=== PATIENT | male | born 1945 | race Hispanic/Latino ===

== ENCOUNTER 2018-01-01 08:36 | Inpatient (IN) | payer MEDICARE ==
--- NOTE | 2018-01-01 09:53 | ED PDOC ---
Arrival/HPI - General Historian: Patient - History of Present Illness Time/Duration: > week Symptom Onset: Gradual Symptom Course: Unchanged Activities at Onset: Light Context: Home <Kurt Grewal - Last Filed: 01/01/18 11:59> - General Historian: Patient, Spouse - History of Present Illness Time/Duration: > week Symptom Onset: Gradual Symptom Course: Unchanged Activities at Onset: Light Context: Home <Idania Florentino Skip - Last Filed: 01/02/18 16:43> - General Chief Complaint: Abdominal Pain Time Seen by Provider: 01/01/18 09:10 - History of Present Illness Narrative History of Present Illness (Text): 01/01/18 09:48 Joni Thomas is a 72 year old male, whose past medical history includes COPD, Diabetes Mellitus, and hypertension, who presents to the emergency department complaining of left side pain for a day. Patient has an associated cough for about 2 weeks. He saw his primary medical physician for evaluation. Patient reports pain in intermittent and worsens with inhalation and cough. Patient denies any fever, chills, chest pain, shortness of breath, nausea, vomiting, diarrhea, back pain, neck pain, headache, dizziness, or any other complaints. (Kurt Grewal) Past Medical History - Provider Review Nursing Documentation Reviewed: Yes - Infectious Disease Hx of Infectious Diseases: None - Tetanus Immunization Tetanus Immunization: Unknown - Cardiac Hx Cardiac Disorders: Yes Hx Hypertension: Yes Hx Peripheral Edema: Yes (ble +1) - Pulmonary Hx Respiratory Disorders: Yes (has home nebulizer) Hx Bronchitis: Yes Hx Chronic Obstructive Pulmonary Disease (COPD): Yes Hx Emphysema: Yes - Neurological Hx Paralysis: No - Endocrine/Metabolic Hx Diabetes Mellitus Type 2: Yes - Hematological/Oncological Hx Blood Transfusions: No Hx Blood Transfusion Reaction: No - Integumentary Other/Comment: multiple skin discolorations ble and dry skin - Musculoskeletal/Rheumatological Hx Falls: No - Psychiatric Hx Emotional Abuse: No Hx Physical Abuse: No Hx Substance Use: No Other/Comment: H/O OF SMOKING CIGARETTES QUIT,DRINKS 1/2 GLASS OF WINE DAILY - Surgical History Hx Coronary Stent: Yes (x1 march of 2014) Other/Comment: CARDIAC STENTS, - Anesthesia Hx Anesthesia: Yes Hx Anesthesia Reactions: No Hx Malignant Hyperthermia: No - Suicidal Assessment Feels Threatened In Home Enviroment: No <Kurt Grewal - Last Filed: 01/01/18 11:59> - Provider Review Nursing Documentation Reviewed: Yes - Travel History Have you recently traveled outside [place] w/in the past 3 mons?: No - Infectious Disease Hx of Infectious Diseases: None - Tetanus Immunization Tetanus Immunization: Unknown <Idania Florentino - Last Filed: 01/02/18 16:43> Family/Social History - Physician Review Nursing Documentation Reviewed: Yes Family/Social History: Unknown Family HX Smoking Status: Former Smoker Hx Alcohol Use: Yes (1/2 glass wine a day) Hx Substance Use: No Hx Substance Use Treatment: No <CarminaKurt - Last Filed: 01/01/18 11:59> - Physician Review Nursing Documentation Reviewed: Yes Family/Social History: Unknown Family HX Smoking Status: Former Smoker Hx Alcohol Use: Yes Hx Substance Use: No Hx Substance Use Treatment: No <Idania Florentino - Last Filed: 01/02/18 16:43> Allergies/Home Meds <CarminaKurt - Last Filed: 01/01/18 11:59> <Idania Florentino - Last Filed: 01/02/18 16:43> Allergies/Adverse Reactions: Allergies No Known Allergies Allergy (Verified 11/17/16 06:51) Home Medications: Home Meds Medication Instructions Recorded Confirmed Fluticasone/Salmeterol 250/50 1 puff PO BID 11/08/15 01/01/18 [Advair Diskus 250/50] Aspirin [Ecotrin] 81 mg PO DAILY 11/17/16 01/01/18 Losartan Potassium [Cozaar] 50 mg PO DAILY 11/17/16 01/01/18 MetFORMIN [glucoPHAGE] 1,000 mg PO BID 11/17/16 01/01/18 Pravastatin Sodium 80 mg PO DAILY 11/17/16 01/01/18 Doxycycline Hyclate [Doryx] 100 mg PO BID 01/01/18 01/01/18 Empagliflozin/Metformin HCl 1 each PO DAILY 01/01/18 01/01/18 [Synjardy 12.5-1,000 mg Tablet] Guaifenesin/Dextromethorphan 10 ml PO PRN PRN 01/01/18 01/01/18 [Guaifenesin Dm Syrup] Montelukast [Singulair] 10 mg PO DAILY 01/01/18 01/01/18 Prednisone [Deltasone] 20 mg PO DAILY 01/01/18 01/01/18 Review of Systems - Physician Review All systems were reviewed & negative as marked: Yes - Review of Systems Constitutional: Normal Eyes: Normal ENT: Normal Respiratory: Cough Cardiovascular: Normal. absent: Chest Pain, Palpitations Gastrointestinal: Normal. absent: Abdominal Pain, Diarrhea, Nausea, Vomiting Genitourinary Male: Normal. absent: Dysuria, Frequency, Hematuria, Urinary Output Changes Musculoskeletal: Normal. absent: Back Pain, Neck Pain Skin: Normal. absent: Rash Neurological: Normal. absent: Headache, Dizziness Endocrine: Normal Hemo/Lymphatic: Normal Psychiatric: Normal <Kurt Grewal - Last Filed: 01/01/18 11:59> - Physician Review All systems were reviewed & negative as marked: Yes - Review of Systems Constitutional: Normal Eyes: Normal ENT: Normal Respiratory: Normal, Cough Cardiovascular: Normal Gastrointestinal: Normal Genitourinary Male: Normal Musculoskeletal: Normal Skin: Normal Neurological: Normal Endocrine: Normal Hemo/Lymphatic: Normal Psychiatric: Normal <Idania Florentino - Last Filed: 01/02/18 16:43> Physical Exam Vital Signs Reviewed: Yes Temperature: Afebrile Blood Pressure: Normal Pulse: Regular Respiratory Rate: Normal Appearance: Positive for: Well-Appearing, Non-Toxic, Comfortable Pain Distress: None Mental Status: Positive for: Alert and Oriented X 3 - Systems Exam Head: Present: Atraumatic, Normocephalic Pupils: Present: PERRL Extroacular Muscles: Present: EOMI Conjunctiva: Present: Normal Mouth: Present: Moist Mucous Membranes Neck: Present: Normal Range of Motion. No: Meningeal Signs, MIDLINE TENDERNESS , Paraspinal Tenderness Respiratory/Chest: Present: Clear to Auscultation, Good Air Exchange. No: Respiratory Distress, Accessory Muscle Use Cardiovascular: Present: Regular Rate and Rhythm, Normal S1, S2. No: Murmurs Abdomen: Present: Normal Bowel Sounds. No: Tenderness, Distention, Peritoneal Signs Back: Present: CVA Tenderness (Point tenderness Left Lateral intercostal area) Upper Extremity: Present: Normal Inspection. No: Cyanosis, Edema Lower Extremity: Present: Normal Inspection. No: Edema, CALF TENDERNESS, Cyanosis Neurological: Present: GCS=15, CN II-XII Intact, Speech Normal Skin: Present: Warm, Dry, Normal Color. No: Rashes Psychiatric: Present: Alert, Oriented x 3, Normal Insight, Normal Concentration <Kurt Grewal - Last Filed: 01/01/18 11:59> Vital Signs Reviewed: Yes Temperature: Afebrile Blood Pressure: Normal Pulse: Regular Respiratory Rate: Normal Appearance: Positive for: Well-Appearing, Non-Toxic, Comfortable Pain Distress: None Mental Status: Positive for: Alert and Oriented X 3 - Systems Exam Head: Present: Atraumatic, Normocephalic Pupils: Present: PERRL Extroacular Muscles: Present: EOMI Conjunctiva: Present: Normal Mouth: Present: Moist Mucous Membranes Neck: Present: Normal Range of Motion Respiratory/Chest: Present: Clear to Auscultation, Good Air Exchange. No: Respiratory Distress, Accessory Muscle Use Cardiovascular: Present: Regular Rate and Rhythm, Normal S1, S2. No: Murmurs Abdomen: Present: Normal Bowel Sounds. No: Tenderness, Distention, Peritoneal Signs Back: Present: CVA Tenderness Upper Extremity: Present: Normal Inspection. No: Cyanosis, Edema Lower Extremity: Present: Normal Inspection. No: Edema Neurological: Present: GCS=15, CN II-XII Intact, Speech Normal Skin: Present: Warm, Dry, Normal Color. No: Rashes Psychiatric: Present: Alert, Oriented x 3, Normal Insight, Normal Concentration <Idania Florentino - Last Filed: 01/02/18 16:43> - Physical Exam Narrative Physical Exam (Text): 01/01/18 10:03 (Kurt Grewal) Vital Signs Temp Pulse Resp BP Pulse Ox 01/01/18 12:06 67 18 126/84 97 01/01/18 11:33 86 18 122/58 L 97 01/01/18 08:53 98.7 F 98 H 16 124/49 L 98 Medical Decision Making <Kurt Grewal - Last Filed: 01/01/18 11:59> <Idania Florentino - Last Filed: 01/02/18 16:43> ED Course and Treatment: 01/01/18 10:03 Impression: 72 year old male presents to the emergency department with left side pain and an associated cough. Plan: -- CT Abdomen and Pelvis -- Chest X-ray -- Urinalysis -- Labs -- Reassess and disposition Prior Visits: Notes and results from previous visits were reviewed. Patient was last seen in the emergency department on 11/17/16 for shortness of breath. Patient was hospitalized for COPD exacerbation and Leukocytosis. Progress Notes: 01/01/18 12:00 Chest X-ray reviewed, shows: FINDINGS: LUNGS: Left lower lobe atelectasis and or infiltrate with left effusion which are seen better advantage on CT scan abdomen pelvis PLEURA: No significant pleural effusion identified. No pneumothorax apparent. CARDIOVASCULAR: Normal. OSSEOUS STRUCTURES: Multilevel degenerative spondylosis of the thoracic spine VISUALIZED UPPER ABDOMEN: Normal. OTHER FINDINGS: None. IMPRESSION: Left lower lobe atelectasis and or infiltrate with left effusion which are seen to better advantage on the concurrent CT scan CT abdomen and pelvis reviewed, shows: FINDINGS: LOWER THORAX: Small left the lower lobe atelectasis/infiltrate and small left effusion. No evidence of basilar pneumothorax. Small hiatal hernia with wall thickening of the distal esophagus likely due to protrusion of gastric mucosa. Possibility of esophagitis or other intrinsic/invasive wall lesion not excluded. Heart size within range of normal. No significant pericardial effusion LIVER: Liver is mildly enlarged measuring nearly 19 cm in CC dimension. . Minimal fatty hepatic infiltration. No evidence of hepatic mass or collection. GALLBLADDER AND BILE DUCTS: Layering intraluminal gallbladder calculi/gravel. . No obvious pericholecystic fluid collections. PANCREAS: The pancreas is slightly atrophic and fatty replaced. No evidence of pancreatic mass collection or calcification. No significant pancreatic ductal dilatation. The SPLEEN: And spleen exhibits normal size and attenuation pattern without mass collection or calcification. ADRENALS: The no adrenal lesions. KIDNEYS AND URETERS: The kidneys demonstrate relatively symmetric size. No evidence of nephrolithiasis or hydronephrosis. . Some minimal of nonspecific infiltration changes seen in the left perinephric fat. BLADDER: Urinary bladder is physiologically distended. No evidence of intraluminal urinary bladder calculi. REPRODUCTIVE: Prostate is mildly enlarged measuring approximately 5 cm in transverse dimension. APPENDIX: What is felt to represent normal appendix best seen on axial image series 3 image number [id number]. No periappendiceal inflammatory changes. BOWEL: Evaluation of the bowel is limited due to the lack of oral contrast material. Stomach is nondistended which presumably accounts for slight thick-walled appearance. Visualized loops of small bowel exhibit normal contour and caliber. No evidence of acute mechanical small bowel obstruction. Large amount of stool seen within the cecum, at ascending and transverse colon and to a lesser degree descending colon consistent with mild constipation. No definitive evidence of abnormal mural wall thickening. . PERITONEUM: No fluid collection. No free air. There is a small fat containing left inguinal hernia. . Tiny fat containing umbilical hernia. LYMPH NODES: No significant/bulky adenopathy. VASCULATURE: Unremarkable. No aortic aneurysm. BONES: Multilevel degenerative spondylosis of the lower thoracic and lumbar spine. There are no acute compression fractures no retropulsed fragments. Mild degenerative changes both hip joints with subchondral cysts seen in the lateral margins of the acetabular roofs bilaterally left greater than right OTHER FINDINGS: None. IMPRESSION: Small left lower lobe atelectasis/infiltrate and small left effusion. Findings suggest mild constipation. Mild hepatomegaly. . Minimal fatty hepatic infiltration. (Kurt Grewal) - Lab Interpretations Microbiology Results: Microbiology Results 01/01/18 11:45 Blood Blood Culture - Preliminary NO GROWTH AFTER 24 HOURS Lab Results: 01/01/18 10:25 01/01/18 10:25 Lab Results 01/01/18 10:25: Sodium 137, Potassium 4.4, Chloride 98, Carbon Dioxide 26, Anion Gap 18, BUN 18, Creatinine 0.7 L, Est GFR ( Amer) > 60, Est GFR ( Non-Af Amer) > 60, Random Glucose 233 H, Calcium 10.5, Total Bilirubin 0.6, AST 17, ALT 35, Alkaline Phosphatase 79, Lactate Dehydrogenase 377, Total Creatine Kinase 24 L, Troponin I < 0.01, Total Protein 7.4, Albumin 4.0, Globulin 3.3, Albumin/Globulin Ratio 1.2 01/01/18 10:25: Urine Color Straw, Urine Appearance Clear, Urine pH 6.0, Ur Specific [place] 1.015, Urine Protein Negative, Urine Glucose (UA) >=1000, Urine Ketones 15 H, Urine Blood Trace-lysed H, Urine Nitrate Negative, Urine Bilirubin Negative, Urine Urobilinogen 0.2, Ur Leukocyte Esterase Negative, Urine RBC 0 - 2, Urine WBC Negative, Ur Epithelial Cells None, Urine Bacteria Small 01/01/18 10:25: WBC 13.1 H, RBC 4.88, Hgb 14.2, Hct 43.3, MCV 88.7, MCH 29.1, MCHC 32.8, RDW 13.8, Plt Count 291, MPV 9.6, Gran % 89.3 H, Lymph % (Auto) 6.4 L , [place] % (Auto) 3.9, Eos % (Auto) 0.2 L, Baso % (Auto) 0.2, Gran # 11.70 H, Lymph # (Auto) 0.8 L, [place] # (Auto) 0.5, Eos # (Auto) 0.0, Baso # (Auto) 0.03 - RAD Interpretation Narrative RAD Interpretations (Text): 01/01/18 11:25 PROCEDURE: CT scan abdomen pelvis dated 01/01/2018 HISTORY: Left sided pain COMPARISON: Comparison made with CT scan chest 11/17/2016 which image the upper abdomen. TECHNIQUE: Contiguous axial images of the abdomen and pelvis performed without oral or intravenous contrast material. Additional 2 dimensional sagittal and coronal reformats generated. . Radiation dose: Total exam DLP = This CT exam was performed using one or more of the following dose reduction techniques: Automated exposure control, adjustment of the mA and/or kV according to patient size, and/or use of iterative reconstruction technique. FINDINGS: LOWER THORAX: Small left the lower lobe atelectasis/infiltrate and small left effusion. No evidence of basilar pneumothorax. Small hiatal hernia with wall thickening of the distal esophagus likely due to protrusion of gastric mucosa. Possibility of esophagitis or other intrinsic/invasive wall lesion not excluded. Heart size within range of normal. No significant pericardial effusion LIVER: Liver is mildly enlarged measuring nearly 19 cm in CC dimension. . Minimal fatty hepatic infiltration. No evidence of hepatic mass or collection. GALLBLADDER AND BILE DUCTS: Layering intraluminal gallbladder calculi/gravel. . No obvious pericholecystic fluid collections. PANCREAS: The pancreas is slightly atrophic and fatty replaced. No evidence of pancreatic mass collection or calcification. No significant pancreatic ductal dilatation. The SPLEEN: And spleen exhibits normal size and attenuation pattern without mass collection or calcification. ADRENALS: The no adrenal lesions. KIDNEYS AND URETERS: The kidneys demonstrate relatively symmetric size. No evidence of nephrolithiasis or hydronephrosis. . Some minimal of nonspecific infiltration changes seen in the left perinephric fat. BLADDER: Urinary bladder is physiologically distended. No evidence of intraluminal urinary bladder calculi. REPRODUCTIVE: Prostate is mildly enlarged measuring approximately 5 cm in transverse dimension. APPENDIX: What is felt to represent normal appendix best seen on axial image series 3 image number [id number]. No periappendiceal inflammatory changes. BOWEL: Evaluation of the bowel is limited due to the lack of oral contrast material. Stomach is nondistended which presumably accounts for slight thick-walled appearance. Visualized loops of small bowel exhibit normal contour and caliber. No evidence of acute mechanical small bowel obstruction. Large amount of stool seen within the cecum, at ascending and transverse colon and to a lesser degree descending colon consistent with mild constipation. No definitive evidence of abnormal mural wall thickening. . PERITONEUM: No fluid collection. No free air. There is a small fat containing left inguinal hernia. . Tiny fat containing umbilical hernia. LYMPH NODES: No significant/bulky adenopathy. VASCULATURE: Unremarkable. No aortic aneurysm. BONES: Multilevel degenerative spondylosis of the lower thoracic and lumbar spine. There are no acute compression fractures no retropulsed fragments. Mild degenerative changes both hip joints with subchondral cysts seen in the lateral margins of the acetabular roofs bilaterally left greater than right OTHER FINDINGS: None. IMPRESSION: Small left lower lobe atelectasis/infiltrate and small left effusion. Findings suggest mild constipation. Mild hepatomegaly. . Minimal fatty hepatic infiltration. (Idania Florentino) Radiology Orders: 01/01/18 09:59 ABD & PELVIS W/O PO OR IV CONT [CT] Stat CHEST TWO VIEWS (PA/LAT) [RAD] Stat - Medication Orders Current Medication Orders: Albuterol/Ipratropium (Duoneb 3 Mg/0.5 Mg (3 Ml) Ud) 3 ml [facility] [id number] [facility] Last Admin: 01/02/18 13:58 Dose: 3 ml Aspirin (Ecotrin) 81 mg PO DAILY [facility] Last Admin: 01/02/18 09:42 Dose: 81 mg Enoxaparin Sodium (Lovenox) 30 mg SC DAILY [facility] PRN Reason: Protocol Last Admin: 01/02/18 09:41 Dose: 30 mg Subcutaneous Administrations Document 01/02/18 09:41 DSZ (Rec: 01/02/18 09:41 [place] [facility] [id number] Injection Site MAR Injection Site Right Abdomen Charges for Administration # of Subcutaneous Administrations 1 Ceftriaxone Sodium (Rocephin 1 Gram Ivpb) 1 gm in 100 mls @ 100 mls/hr IVPB DAILY [facility] PRN Reason: Protocol Last Admin: 01/02/18 09:42 Dose: 100 mls/hr eMAR Start Stop Document 01/02/18 09:42 DSZ (Rec: 01/02/18 09:42 [facility]Z [facility] [id number] Intravenous Solution Start Date 01/02/18 Start Time 09:42 Azithromycin (Zithromax 500mg In Ns) 500 mg in 250 mls @ 167 mls/hr IVPB DAILY ZHEN PRN Reason: Protocol Last Admin: 01/02/18 11:32 Dose: 167 mls/hr eMAR Start Stop Document 01/02/18 11:32 DSZ (Rec: 01/02/18 11:32 [facility]Z [facility] [id number] Intravenous Solution Start Date 01/02/18 Start Time 11:32 Insulin Human Regular (Humulin R Low) 0 units SC ACHS ZHEN PRN Reason: Protocol Last Admin: 01/02/18 11:54 Dose: Not Given Non-Admin Reason: Patient Refused MAR Blood Glucose Document 01/02/18 11:54 DSZ (Rec: 01/02/18 14:55 DSZ [facility] [id number]) Blood Glucose Finger Stick Blood Glucose (70-120) 213 Losartan Potassium (Cozaar) 50 mg PO DAILY [facility] Last Admin: 01/02/18 09:42 Dose: 50 mg MAR Pulse and Blood Pressure Document 01/02/18 09:42 DSZ (Rec: 01/02/18 09:43 [facility] [id number] Pulse Pulse Rate (60-90) 73 Blood Pressure Blood Pressure (100/60-150/90) 135/77 Methylprednisolone (Solu-Medrol) 20 mg IVP Q12 [facility] Last Admin: 01/02/18 09:43 Dose: 20 mg IVP Administration Document 01/02/18 09:43 DSZ (Rec: 01/02/18 09:43 DSZ [facility] [id number] Charges for Administration # of IVP Administrations 1 Montelukast Sodium (Singulair) 10 mg PO DAILY [facility] Last Admin: 01/02/18 09:42 Dose: 10 mg Pantoprazole Sodium (Protonix Ec Tab) 40 mg PO 0600 [facility] Last Admin: 01/02/18 05:57 Dose: 40 mg Discontinued Medications Albuterol/Ipratropium (Duoneb 3 Mg/0.5 Mg (3 Ml) Ud) 3 ml IH STAT STA Stop: 01/01/18 11:50 Last Admin: 01/01/18 12:06 Dose: 3 ml Ceftriaxone Sodium (Rocephin 1 Gram Ivpb) 1 gm in 100 mls @ 200 mls/hr IVPB ONCE STA PRN Reason: Protocol Stop: 01/01/18 12:08 Last Admin: 01/01/18 12:06 Dose: 200 mls/hr eMAR Start Stop Document 01/01/18 12:06 SINDY (Rec: 01/01/18 12:06 [facility] [id number] Intravenous Solution Start Date 01/01/18 Start Time 12:06 End Date 01/01/18 End time 12:36 Total Infusion Time 30 Azithromycin (Zithromax 500mg In Ns) 500 mg in 250 mls @ 166.667 mls/hr IVPB STAT STA PRN Reason: Protocol Stop: 01/01/18 13:08 Last Admin: 01/01/18 12:45 Dose: 166.667 mls/hr eMAR Start Stop Document 01/01/18 12:45 SINDY (Rec: 01/01/18 12:45 [facility] [id number] Intravenous Solution Start Date 01/01/18 Start Time 12:45 End Date 01/01/18 End time 14:15 Total Infusion Time 90 - Scribe Statement The provider has reviewed the documentation as recorded by the Scribe <Kurt Grewal - Last Filed: 01/01/18 11:59> <Idania Florentino - Last Filed: 01/02/18 16:43> - Scribe Statement Alexandria Del Cid All medical record entries made by the Scribe were at my direction and personally dictated by me. I have reviewed the chart and agree that the record accurately reflects my personal performance of the history, physical exam, medical decision making, and the department course for this patient. I have also personally directed, reviewed, and agree with the discharge instructions and disposition. (Kurt Grewal) Disposition/Present on Arrival - Present on Arrival History of DVT/PE: No History of Uncontrolled Diabetes: No Urinary Catheter: No History of Decub. Ulcer: No History Surgical Site Infection Following: None <Kurt Grewal - Last Filed: 01/01/18 11:59> - Present on Arrival Any Indicators Present on Arrival: Yes History of DVT/PE: No History of Uncontrolled Diabetes: No Urinary Catheter: No History of Decub. Ulcer: No History Surgical Site Infection Following: None - Disposition Have Diagnosis and Disposition been Completed?: Yes Disposition Time: 07:00 (01/01/18) Patient Plan: Admission <Idania Florentino - Last Filed: 01/02/18 16:43> - Disposition Diagnosis: COPD exacerbation Disposition: HOSPITALIZED Condition: STABLE
[2018-01-01 11:07] LABS: ALB/GLOB RATIO 1.2 (1.1-1.8); ALT/SGPT 35 U/L (7-56); AST/SGOT 17 U/L (17-59); BLOOD UREA NITROGEN 18 mg/dL (7-21); CALCIUM 10.5 mg/dL (8.4-10.5); GFR AFRICAN-AMERICAN > 60; GFR NON-AFRICAN AMERICAN > 60
[2018-01-01 11:16] LABS: TROPONIN I < 0.01 ng/mL; URINE BILIRUBIN NEGATIVE (NEGATIVE); URINE BLOOD TRACE-LYSED (NEGATIVE); URINE GLUCOSE (UA) >=1000 mg/dL (NEGATIVE); URINE LEUKOCYTE ESTERASE NEGATIVE Leu/uL (NEGATIVE); URINE NITRATE NEGATIVE (NEGATIVE); URINE PROTEIN NEGATIVE mg/dL (<30 mg/dL); URINE UROBILINOGEN 0.2 E.U./dL (<1 E.U./dL)
[2018-01-01 11:19] LABS: BASO # 0.03 K/mm3 (0.0-2.0); BASO % 0.2 % (0.0-3.0); EOS % 0.2 % (1.5-5.0); GRAN # 11.7 (1.4-6.5); GRAN % 89.3 % (50.0-68.0); HEMOGLOBIN 14.2 g/dL (14.0-18.0); LYMPH # 0.8 (1.2-3.4); LYMPH % 6.4 % (22.0-35.0); MEAN CELL VOLUME 88.7 fl (80.0-105.0); MEAN CORPUSCULAR HEMOGLOBIN 29.1 pg (25.0-35.0); MEAN CORPUSCULAR HGB CONC 32.8 g/dl (31.0-37.0); MEAN PLATELET VOLUME 9.6 fl (7.0-11.0); MONO # 0.5 (0.1-0.6); MONO % 3.9 % (1.0-6.0); RBC 4.88 10^6/uL (3.5-6.1); RED CELL DISTRIBUTION WIDTH 13.8 % (11.5-14.5); WHITE BLOOD COUNT 13.1 10^3/ul (4.5-11.0)
--- NOTE | 2018-01-01 11:25 | CT ---
PROCEDURE: CT scan abdomen pelvis dated 01/01/2018 HISTORY: Left sided pain COMPARISON: Comparison made with CT scan chest 11/17/2016 which image the upper abdomen. TECHNIQUE: Contiguous axial images of the abdomen and pelvis performed without oral or intravenous contrast material. Additional 2 dimensional sagittal and coronal reformats generated. . Radiation dose: Total exam DLP = This CT exam was performed using one or more of the following dose reduction techniques: Automated exposure control, adjustment of the mA and/or kV according to patient size, and/or use of iterative reconstruction technique. FINDINGS: LOWER THORAX: Small left the lower lobe atelectasis/infiltrate and small left effusion. No evidence of basilar pneumothorax. Small hiatal hernia with wall thickening of the distal esophagus likely due to protrusion of gastric mucosa. Possibility of esophagitis or other intrinsic/invasive wall lesion not excluded. Heart size within range of normal. No significant pericardial effusion LIVER: Liver is mildly enlarged measuring nearly 19 cm in CC dimension. . Minimal fatty hepatic infiltration. No evidence of hepatic mass or collection. GALLBLADDER AND BILE DUCTS: Layering intraluminal gallbladder calculi/gravel. . No obvious pericholecystic fluid collections. PANCREAS: The pancreas is slightly atrophic and fatty replaced. No evidence of pancreatic mass collection or calcification. No significant pancreatic ductal dilatation. The SPLEEN: And spleen exhibits normal size and attenuation pattern without mass collection or calcification. ADRENALS: The no adrenal lesions. KIDNEYS AND URETERS: The kidneys demonstrate relatively symmetric size. No evidence of nephrolithiasis or hydronephrosis. . Some minimal of nonspecific infiltration changes seen in the left perinephric fat. BLADDER: Urinary bladder is physiologically distended. No evidence of intraluminal urinary bladder calculi. REPRODUCTIVE: Prostate is mildly enlarged measuring approximately 5 cm in transverse dimension. APPENDIX: What is felt to represent normal appendix best seen on axial image series 3 image number [id number]. No periappendiceal inflammatory changes. BOWEL: Evaluation of the bowel is limited due to the lack of oral contrast material. Stomach is nondistended which presumably accounts for slight thick-walled appearance. Visualized loops of small bowel exhibit normal contour and caliber. No evidence of acute mechanical small bowel obstruction. Large amount of stool seen within the cecum, at ascending and transverse colon and to a lesser degree descending colon consistent with mild constipation. No definitive evidence of abnormal mural wall thickening. . PERITONEUM: No fluid collection. No free air. There is a small fat containing left inguinal hernia. . Tiny fat containing umbilical hernia. LYMPH NODES: No significant/bulky adenopathy. VASCULATURE: Unremarkable. No aortic aneurysm. BONES: Multilevel degenerative spondylosis of the lower thoracic and lumbar spine. There are no acute compression fractures no retropulsed fragments. Mild degenerative changes both hip joints with subchondral cysts seen in the lateral margins of the acetabular roofs bilaterally left greater than right OTHER FINDINGS: None. IMPRESSION: Small left lower lobe atelectasis/infiltrate and small left effusion. Findings suggest mild constipation. Mild hepatomegaly. . Minimal fatty hepatic infiltration.
[2018-01-01 11:27] LABS: URINE APPEARANCE CLEAR (CLEAR); URINE COLOR STRAW (YELLOW)
[2018-01-01 11:33] VITALS: RESP 18
[2018-01-01] MEDS ORDERED: Azithromycin 500MG/NS 250ml 500 MG/250 ML BAG IVPB STA (11:39)
[2018-01-01] MEDS ORDERED: cefTRIAXone 1 gm 1 GM/100 ML BAG IVPB STA (11:39)
--- NOTE | 2018-01-01 11:43 | RAD ---
HISTORY: cough COMPARISON: Comparison chest 11/17/2016. Comparison also made with concurrent CT scan of the abdomen and pelvis TECHNIQUE: Chest PA and lateral FINDINGS: LUNGS: Left lower lobe atelectasis and or infiltrate with left effusion which are seen better advantage on CT scan abdomen pelvis PLEURA: No significant pleural effusion identified. No pneumothorax apparent. CARDIOVASCULAR: Normal. OSSEOUS STRUCTURES: Multilevel degenerative spondylosis of the thoracic spine VISUALIZED UPPER ABDOMEN: Normal. OTHER FINDINGS: None. IMPRESSION: Left lower lobe atelectasis and or infiltrate with left effusion which are seen to better advantage on the concurrent CT scan
[2018-01-01] MEDS ORDERED: Albuterol-Ipratrop 3 mg / 0.5 (3 ml) UD IH STA (11:49)
[2018-01-01 12:11] LABS: URINE RBC 0 - 2 /hpf (0-2); URINE WBC NEGATIVE /hpf (0-6)
[2018-01-01 12:12] LABS: URINE BACTERIA SMALL (NEG)
[2018-01-01 12:19] LABS: VENOUS BLOOD GAS PO2 113 mm/Hg (30-55)
[2018-01-01 14:10] VITALS: BMI 34.2
[2018-01-01] MEDS: Enoxaparin 30 mg Syringe SC SCH (18:15)
[2018-01-01] MEDS: Insulin Reg-LOW-Coverage SC SCH ×2 (18:15→22:07)
[2018-01-01] MEDS: MethylPREDNISolone 40 mg Vial IVP SCH (21:38)
[2018-01-01] MEDS: Albuterol-Ipratrop 3 mg / 0.5 (3 ml) UD IH SCH (21:55)
[2018-01-02] MEDS: Albuterol-Ipratrop 3 mg / 0.5 (3 ml) UD IH SCH ×4 (04:24→22:39)
[2018-01-02] MEDS: Pantoprazole 40 mg EC Tab PO SCH (05:57)
[2018-01-02] MEDS: Insulin Reg-LOW-Coverage SC SCH ×4 (07:41→23:03)
[2018-01-02] MEDS: Enoxaparin 30 mg Syringe SC SCH (09:41)
[2018-01-02] MEDS: cefTRIAXone 1 gm 1 GM/100 ML BAG IVPB SCH (09:42)
[2018-01-02] MEDS: MethylPREDNISolone 40 mg Vial IVP SCH ×2 (09:43→23:02)
--- NOTE | 2018-01-02 09:44 | CARD ---
APPROVED REPORT EKG Measurement Heart [id number] <Conclusion> Sinus rhythm with 1st degree AV block with premature atrial complexes Small q waves 3,F No change
[2018-01-02] MEDS: Azithromycin 500MG/NS 250ml 500 MG/250 ML BAG IVPB SCH (11:32)
--- NOTE | 2018-01-02 19:54 | HP ---
HISTORY OF PRESENT ILLNESS: A 72-year-old white male with history of [id number] diabetes mellitus, COPD, multiple exacerbations of COPD in the past, mild hypertension. The patient has an approximately 3 or 4 day course of progressive cough, shortness of breath, fever, sputum production, and left chest pain with deep inspiration. SOCIAL HISTORY: The patient is a nonsmoker and nondrinker. He has no travel history. ALLERGIES: HE HAS NO ALLERGIES. PAST SURGICAL HISTORY: No recent surgical history. PHYSICAL EXAMINATION: GENERAL: Shows a well-developed, well-nourished white male with mild respiratory distress. CHEST: Shows rhonchi and rales in all lung avitia, particularly in the left base. ABDOMEN: Soft. HEART: Regular sinus rhythm. No S3 or murmurs. EXTREMITIES: No cyanosis, clubbing, or edema. IMPRESSION: A 72-year-old white male presenting with pneumonia, pleuritic chest pain, pleuritis, pleural effusion, exacerbation of chronic obstructive pulmonary disease, and mild hypertension. Rex Singletary MD
--- NOTE | 2018-01-03 01:37 | CON ---
DATE: 01/02/2018 PULMONARY CONSULT REFERRING PHYSICIAN: Rex Singletary MD. REASON FOR CONSULT: Left pleuritic pain, some cough. HISTORY OF PRESENT ILLNESS: This is a 72-year-old gentleman with a history of chronic obstructive lung disease, diabetes, hypertension. Came in to emergency room with left-sided pain with more pleuritic with mild cough. No nausea. No vomiting. No diarrhea. No leg pain or leg swelling. PAST MEDICAL HISTORY: COPD, diabetes, hypertension, also has a history of coronary artery disease with coronary stent. FAMILY HISTORY: No significant cardiopulmonary disease reported. SOCIAL HISTORY: Former smoker. Denies any alcohol use other than socially drinks. ALLERGIES: NONE KNOWN. MEDICATIONS: He is on Cozaar 50 mg daily, DuoNeb q. 6 hours, Ecotrin 81 mg daily, insulin coverage, Lovenox 30 mg daily, Protonix 40 mg daily, Rocephin 1 g IV daily, Singulair 10 mg daily, Solu-Medrol 20 mg q. 12 hours, Zithromax 500 mg daily. REVIEW OF SYSTEMS: No headache, not much rhinitis. Mild cough. Left pleuritic pain. No nausea. No dysuria. No abdominal pain. No leg pain or leg swelling. PHYSICAL EXAMINATION: GENERAL: Sitting up on the side of the bed, no acute distress. VITAL SIGNS: Temperature is 98, heart rate is 79, respiratory is 18, blood pressure 134/59, pulse ox 93% on room air. HEENT: Moist mucous membrane. Crowded airway. Mallampati score is 4. NECK: Supple. No JVD. LUNGS: Have a fair airflow with few crackles in the left base. HEART: S1 and S2. ABDOMEN: Soft, nontender. No organomegaly. EXTREMITIES: There is no edema. NEUROLOGIC: Awake, alert. Follows simple command. LABORATORY DATA: Shows hemoglobin 14.2, hematocrit 43.3, WBC 13.1, platelet count is 291. VBG showed pH 7.40, pCO2 of 42, O2 of 113. Blood sugar this morning is 239. Sodium 137, potassium 4.4, chloride 98, bicarbonate 26, BUN 18, creatinine 0.7, calcium 10.5, AST 17, ALT 35, alk phos is 79. LDH is 377. Troponin less than 0.01. Albumin is 4.0. Influenza A and B negative. Microbiology, blood culture has been negative. CAT scan of the abdomen and pelvis done, which shows small left lobe atelectasis/infiltrate. Also, the patient has constipation, mild hepatomegaly. IMPRESSION AND PLAN: Left-sided pleuritic pain. Is it pneumonia? Has a chronic obstructive pulmonary disease. Rule out pulmonary embolism, history of coronary artery disease, hypertension, diabetes. We will order a CT angio to rule out pulmonary embolism. Continue antibiotics, IV and inhaled bronchodilator, gastric prophylaxis, deep venous thrombosis prophylaxis for now. There is also may be a component of sleep apnea syndrome. Thank you and we will follow with you. Luis Carlos Atkinson MD
[2018-01-03] MEDS: Albuterol-Ipratrop 3 mg / 0.5 (3 ml) UD IH SCH ×4 (05:05→19:45)
[2018-01-03] MEDS: Insulin Reg-LOW-Coverage SC SCH ×4 (08:00→22:02)
--- NOTE | 2018-01-03 08:52 | CT ---
PROCEDURE: CT Chest with contrast (Pulmonary Angiogram) HISTORY: r/o pe COMPARISON: Unenhanced chest CT 11/17/2016 TECHNIQUE: Axial computed tomography images were obtained of the chest in the pulmonary arterial phase of enhancement. Coronal and sagittal reformatted images were created and reviewed. Intravenous contrast dose: Omnipaque 350, 150 cc Radiation dose: Total exam DLP = 473.47 mGy-cm. This CT exam was performed using one or more of the following dose reduction techniques: Automated exposure control, adjustment of the mA and/or kV according to patient size, and/or use of iterative reconstruction technique. FINDINGS: PULMONARY ARTERIES: Unremarkable. No pulmonary embolism. AORTA: There is very mild aneurysmal dilatation of the ascending thoracic aorta measures 4.1 cm terminating at the distal ascending segment which measures 3.7 cm. The thoracic aorta otherwise appears unremarkable. No significant pulmonary artery dilatation. LUNGS: There is a right-sided infiltrate or definitive pulmonary low lesion. Central airways bilaterally appear grossly unremarkable. A mild infiltrate identified in the left lower lobe medial basilar subsegment. A 5.2 mm nodule is stable at the left lower lobe base laterally dating back at least to prior chest CT dated 11/11/2015. No definite calcification associated. PLEURAL SPACES: A minimal left pleural effusion is identified. No pericardial or right pleural effusion. No pneumothorax identified bilaterally. HEART: Unremarkable. No cardiomegaly. No significant pericardial effusion. LYMPH NODES: No lymphadenopathy. BONES, CHEST WALL: Unremarkable. No fracture or destructive lesion OTHER FINDINGS: Unremarkable. IMPRESSION: 1. No definite CT evidence to suggest pulmonary embolus. 2. Interval limited infiltrate left lower lobe base. No right-sided infiltrate. Limited left pleural effusion. 3. 5.2 mm noncalcified nodule left lower lobe, stable dating back to at least prior chest CT 11/11/2015. Follow low-dose chest CT advised in 1 year. Lung rads 2
[2018-01-03] MEDS: cefTRIAXone 1 gm 1 GM/100 ML BAG IVPB SCH (10:03)
[2018-01-03] MEDS: MethylPREDNISolone 40 mg Vial IVP SCH ×2 (10:04→22:02)
[2018-01-03] MEDS: Enoxaparin 30 mg Syringe SC SCH (10:04)
[2018-01-03] MEDS: Pantoprazole 40 mg EC Tab PO SCH (10:05)
--- NOTE | 2018-01-03 10:26 | PN ---
DATE: This 72-year-old white male admitted to the hospital with pneumonia, pleuritis, chest pain, shortness of breath, cough. White count 13,100. Patient is seen in consultation by Dr. Atkinson. Patient is now for a CT angiogram to rule out pulmonary embolism versus pneumonia and pleuritis. Patient is to continue IV antibiotics, bronchodilators and steroids. Patient is somewhat improved. Temperature is 98 degrees. Chest shows decreased breath sounds with rhonchi and rales in both bases. Rex Singletary MD
[2018-01-03] MEDS: Azithromycin 500MG/NS 250ml 500 MG/250 ML BAG IVPB SCH (11:30)
--- NOTE | 2018-01-04 01:07 | PN ---
DATE: 01/03/2018 PULMONARY PROGRESS NOTE REFERRING PHYSICIAN: Rex Singletary MD SUBJECTIVE: He is sitting on the side of the bed. His is at bedside. No headache. No rhinitis. Still has some pleuritic pain. No nausea, vomiting, diarrhea, leg pain or leg swelling. OBJECTIVE: GENERAL: In no acute distress. VITAL SIGNS: Temp is 98, heart rate is 70, respiratory rate is 18, blood pressure 125/85, pulse ox of 95% on 2 L nasal cannula. HEENT: Moist mucous membrane. Crowded airway. Mallampati score is 4. NECK: Supple. No JVD. LUNGS: Have fair airflow with rhonchi. HEART: S1 and S2. ABDOMEN: Soft and nontender. No organomegaly. EXTREMITIES: No edema. NEUROLOGIC: Awake, alert. Follows simple command. MEDICATIONS: He is on Cozaar 50 mg daily, DuoNeb q. 6 hour, Ecotrin 81 mg daily, insulin coverage, Lovenox 30 mg daily, Protonix 40 mg daily, Rocephin 1 g daily, Singulair 10 mg daily, Solu-Medrol 20 mg twice a day, Zithromax 500 mg daily. LABORATORY DATA: Reviewed, noted his D-dimer was 900. Blood sugar 296. Procalcitonin 0.05. Microbiology: Blood culture has been negative; had a CAT scan of the chest done, there is no pulmonary embolism, but does have interval limited infiltrate in the left lower lobe base, limited left pleural effusion, there is 5.2-mm noncalcified nodule left lower lobe, which has been stable since 2015. IMPRESSION AND PLAN: Left-sided pleuritic pain, could be just pneumonia, may be pleural reaction with inflammatory process; chronic obstructive lung disease; coronary artery disease; hypertension; diabetes; he has known sleep apnea syndrome, diagnosed 2 years ago, refused to use continuous positive airway pressure/bilevel positive airway pressure. We will continue intravenous and inhaled bronchodilator. Continue antibiotics, gastric prophylaxis, deep venous thrombosis prophylaxis. Sleep apnea precaution. Care for nocturnal sedation. Thank you and we will follow with you. Luis Carlos Atkinson MD
[2018-01-04] MEDS: Albuterol-Ipratrop 3 mg / 0.5 (3 ml) UD IH SCH ×4 (01:17→13:38)
[2018-01-04] MEDS: Pantoprazole 40 mg EC Tab PO SCH (06:05)
[2018-01-04] MEDS: Insulin Reg-LOW-Coverage SC SCH ×2 (08:31→12:32)
[2018-01-04 09:15] VITALS: BP 121/75; TEMP 98; O2SAT 95
[2018-01-04] MEDS: Enoxaparin 30 mg Syringe SC SCH (11:34)
[2018-01-04] MEDS: MethylPREDNISolone 40 mg Vial IVP SCH (11:35)
[2018-01-04] MEDS: Azithromycin 500MG/NS 250ml 500 MG/250 ML BAG IVPB SCH (11:37)
[2018-01-04] MEDS: cefTRIAXone 1 gm 1 GM/100 ML BAG IVPB SCH (11:37)
--- NOTE | 2018-01-04 11:37 | PN ---
DATE: SUBJECTIVE: A 72-year-old white male, admitted to the hospital with pleuritic chest pain, pneumonia, exacerbation of COPD. CT did not show any evidence of infarct or PE. The patient is improved today. He is less short of breath, he is status post wheezing. His lungs are clear. He is afebrile. He does have some right-sided chest pain that is not reproducible. EKG is ordered. Troponins are ordered. If they are negative, most likely will discharge the patient to home. Rex Singletary MD
[2018-01-04 11:38] VITALS: PULSE 91
--- NOTE | 2018-01-04 16:54 | PN ---
DATE: 01/04/2018 PULMONARY PROGRESS NOTE REFERRING PHYSICIAN: Rex Singletary MD. SUBJECTIVE: Sitting on side of the bed, getting antibiotic. Night was unremarkable. Pleuritic pain is better. No nausea. No vomiting, diarrhea, leg pain, leg swelling. OBJECTIVE: GENERAL: In no acute distress. VITAL SIGNS: Temp is 98, heart rate is 60, respiratory rate is 18, blood pressure 121/75, pulse ox 95% on room air. HEENT: Moist mucous membrane. Crowded airway. NECK: Supple. No JVD. LUNGS: Have a fair airflow with rhonchi. HEART: S1 and S2. ABDOMEN: Soft and nontender. No organomegaly. EXTREMITIES: No edema. NEUROLOGICAL: Awake and alert. Follows simple command. LABORATORY DATA: Shows blood sugar this morning is 260. Troponin level 0.01. Microbiology: Blood culture is negative. MEDICATIONS: He is on Cozaar 50 mg daily, DuoNeb q. 6 hours, Ecotrin 81 mg daily, insulin coverage, Lovenox 30 mg subcu daily, Protonix 40 mg daily, Rocephin 1 g IV daily, Singulair 10 mg daily, Solu-Medrol 20 mg q. 12 hours, Zithromax 500 mg daily. IMPRESSION AND PLAN: Left-sided pleuritic pain, a small pneumonia, a pleural reaction, chronic obstructive lung disease, coronary artery disease, hypertension, diabetes, history of known obstructive sleep apnea, but refused continuous positive airway pressure. Continue antibiotics, bronchodilator, gastric prophylaxis. Outpatient followup x-ray to make sure the stability of infiltrate. Encouraged him to try continuous positive airway pressure. Thank you and we will follow with you. Luis Carlos Atkinson MD
--- NOTE | 2018-01-04 21:49 | CARD ---
APPROVED REPORT EKG Measurement Heart [id number] <Conclusion> Sinus rhythm with marked sinus arrhythmia with 1st degree AV block Otherwise normal ECG
--- NOTE | 2018-01-05 03:44 | DS ---
SUMMARY: Patient is a 72-year-old white male with a history of COPD, non-insulin dependent diabetes mellitus, hypertension. Patient had severe rhonchi, rales, and left pleuritic chest pain. Patient was seen in consultation by Dr. Atkinson. Had a CT of the chest, which did not show any pulmonary embolisms. Patient was treated with IV antibiotics, bronchodilators and steroids, and improved suddenly. Did have some right-sided chest pain, which was EKG and troponin negative. Eventually patient was able to be discharged home in improved condition. DISCHARGE DIAGNOSES: Pleuritic chest pain, pneumonia, exacerbation of chronic obstructive pulmonary disease. Rex Singletary MD
== END 2018-01-04 15:48 | disposition home or self-care (01) | DRG 194 ==
LOC: ED 08:36 → ERH 11:49 → 5RSO 13:58
PROVIDERS: ADMIT Internal Medicine; ATTEND Internal Medicine
PROC: 3E0F7GC Introduction of Other Therapeutic Substance into Respiratory Tract, Via Natural or Artificial Opening (ICD-10-PCS; principal; 2018-01-01)
DX: J18.9 Pneumonia, unspecified organism (principal); J44.1 Chronic obstructive pulmonary disease with (acute) exacerbation; J44.0 Chronic obstructive pulmonary disease with (acute) lower respiratory infection; E11.9 Type 2 diabetes mellitus without complications; I10 Essential (primary) hypertension; R07.81 Pleurodynia; I25.10 Atherosclerotic heart disease of native coronary artery without angina pectoris; G47.33 Obstructive sleep apnea (adult) (pediatric); Z79.84 Long term (current) use of oral hypoglycemic drugs; Z95.5 Presence of coronary angioplasty implant and graft; Z87.891 Personal history of nicotine dependence

== ENCOUNTER 2018-03-03 10:43 | Emergency (ER) | payer MEDICARE ==
[2018-03-03 10:43] VITALS: BMI 34.2
[2018-03-03 10:52] VITALS: PULSE 87; TEMP 97.7
--- NOTE | 2018-03-03 11:15 | ED PDOC ---
Arrival/HPI - General Chief Complaint: Back Pain Time Seen by Provider: 03/03/18 10:45 Historian: Patient, Family - History of Present Illness Narrative History of Present Illness (Text): you were treated in the ED today for hx of HTN, Cholesterol, Diabetes, COPD, and today having right lower back pain but otherwise without any fall/injury/ loss of consciousness/neck pain/nausea/vomiting/headache/dizziness/difficulty breathing/chest pain/abdomen pain/numbness/tingling/loss of limb or bowel or bladder function/pain with urination or blood in urine/groin or penis or scrotum pain. 03/03/18 11:15 Time/Duration: Other (1 day) Symptom Onset: Gradual Symptom Course: Unchanged Quality: Aching Severity Level: 2 Activities at Onset: Rest Context: Sitting Past Medical History - Provider Review Nursing Documentation Reviewed: Yes - Travel History Have you recently traveled outside [place] w/in the past 3 mons?: No - Infectious Disease Hx of Infectious Diseases: None - Tetanus Immunization Tetanus Immunization: Unknown - Cardiac Hx Cardiac Disorders: Yes Hx Peripheral Edema: Yes - Pulmonary Hx Respiratory Disorders: Yes Hx Bronchitis: Yes Hx Chronic Obstructive Pulmonary Disease (COPD): Yes Hx Emphysema: Yes - Neurological Hx Neurological Disorder: No - HEENT Hx HEENT Disorder: No - Renal Hx Renal Disorder: No - Endocrine/Metabolic Hx Endocrine Disorders: Yes Hx Diabetes Mellitus Type 2: Yes - Hematological/Oncological Hx Blood Disorders: No - Integumentary Other/Comment: multiple skin discolorations ble and dry skin - Musculoskeletal/Rheumatological Hx Musculoskeletal Disorders: No - Gastrointestinal Hx Gastrointestinal Disorders: No - Genitourinary/Gynecological Hx Genitourinary Disorders: No - Psychiatric Hx Psychophysiologic Disorder: No Hx Substance Use: No - Surgical History Hx Coronary Stent: Yes Other/Comment: CARDIAC STENT, HERNIA REPAIR - Anesthesia Hx Anesthesia: Yes Hx Anesthesia Reactions: No Hx Malignant Hyperthermia: No - Suicidal Assessment Feels Threatened In Home Enviroment: No Family/Social History - Physician Review Nursing Documentation Reviewed: Yes Family/Social History: No Known Family HX Smoking Status: Former Smoker Hx Alcohol Use: Yes (1/2 glass wine a day) Hx Substance Use: No Hx Substance Use Treatment: No Allergies/Home Meds Allergies/Adverse Reactions: Allergies No Known Allergies Allergy (Verified 03/03/18 10:45) Home Medications: Home Meds Medication Instructions Recorded Confirmed Fluticasone/Salmeterol 250/50 1 puff PO BID 11/08/15 03/03/18 [Advair Diskus 250/50] Aspirin [Ecotrin] 81 mg PO DAILY 11/17/16 01/01/18 Losartan Potassium [Cozaar] 50 mg PO DAILY 11/17/16 03/03/18 Pravastatin Sodium 80 mg PO DAILY 11/17/16 03/03/18 Empagliflozin/Metformin HCl 1 each PO DAILY 01/01/18 03/03/18 [Synjardy 12.5-1,000 mg Tablet] Review of Systems - Review of Systems Constitutional: Normal Eyes: Normal ENT: Normal Respiratory: Normal Cardiovascular: Normal Gastrointestinal: Normal Genitourinary Male: Normal Musculoskeletal: Back Pain Skin: Normal Neurological: Normal Endocrine: Normal Hemo/Lymphatic: Normal Psychiatric: Normal Physical Exam Vital Signs Reviewed: Yes Vital Signs Temp Pulse Resp BP Pulse Ox 03/03/18 12:00 87 18 127/86 99 03/03/18 10:45 97.7 F 87 16 122/62 94 L Temperature: Afebrile Blood Pressure: Hypertensive Pulse: Regular Respiratory Rate: Normal Appearance: Positive for: Well-Appearing, Non-Toxic, Comfortable Pain Distress: None Mental Status: Positive for: Alert and Oriented X 3 - Systems Exam Head: Present: Atraumatic, Normocephalic Pupils: Present: PERRL Extroacular Muscles: Present: EOMI Conjunctiva: Present: Normal Ears: Present: Normal Mouth: Present: Moist Mucous Membranes Pharnyx: Present: Normal Nose (External): Present: Atraumatic Nose (Internal): Present: Normal Inspection Neck: Present: Normal Range of Motion Respiratory/Chest: Present: Clear to Auscultation, Good Air Exchange Cardiovascular: Present: Regular Rate and Rhythm Abdomen: Present: Other (no pulsatile masses). No: Tenderness, Distention, Normal Bowel Sounds, Peritoneal Signs, Rebound, Guarding, McBurney's Point Tender, Rovsing's Sign Present, Hernias, Feeding Tubes, Ostomy Tubes, Mass/ Organomegaly, Scars Back: Present: Other (no spinal tenderness but mild right lower paraspinal lumbar discomfort wo redness/fluctuance/crepitus) Upper Extremity: Present: Normal Inspection Lower Extremity: Present: Normal Inspection Neurological: Present: GCS=15, CN II-XII Intact, Speech Normal, Motor Func Grossly Intact Skin: Present: Warm, Normal Color Medical Decision Making ED Course and Treatment: you were treated in the ED today for hx of HTN, Cholesterol, Diabetes, COPD, and today having right lower back pain but otherwise without any fall/injury/ loss of consciousness/neck pain/nausea/vomiting/headache/dizziness/difficulty breathing/chest pain/abdomen pain/numbness/tingling/loss of limb or bowel or bladder function/pain with urination or blood in urine/groin or penis or scrotum pain. You were otherwise breathing easily, pink moist lips, smiling and talking with your son, good strength/sensation, alert/oriented, walking easily, clear lungs, no abdomen tenderness or pulsatile masses, no spinal tenderness or redness but mild right lower back discomfort, no groin/scrotum/penis tenderness , no fever temp 97.7, stable heart rate 87, stable breathing rate 16, stable oxygen level 94% room air, elevated blood pressure 122/62 which we recommend repeat in 2-3 days primary care office to determine further treatment, home finger stick glucose 150, radiology ct lumbar no acute fracture, flexeril, observation done in the ED with improvement, counselled to use heating pad and thus discharged home with son. 1. Recommend tylenol as directed for mild pain. 2. Recommend flexeril as directed for breakthrough pain. Don't work/drive/drink alcohol when using. 3. Recommend follow-up primary care 2 days to review symptoms, referral to spine clinic for disc disease and degenerative findings to ensure further care. 4. If any worsening pain, fever, chills, nausea, vomiting, difficulty breathing, numbness, loss of limb function, pain with urination or any medical condition then return to the ED. 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 Ulcer: No History Surgical Site Infection Following: None - Disposition Have Diagnosis and Disposition been Completed?: Yes Diagnosis: Lumbar pain Disposition: HOME/ ROUTINE Disposition Time: 12:31 Patient Plan: Discharge Condition: IMPROVED Discharge Instructions (ExitCare): Low Back Pain (DC) Additional Instructions: you were treated in the ED today for hx of HTN, Cholesterol, Diabetes, COPD, and today having right lower back pain but otherwise without any fall/injury/ loss of consciousness/neck pain/nausea/vomiting/headache/dizziness/difficulty breathing/chest pain/abdomen pain/numbness/tingling/loss of limb or bowel or bladder function/pain with urination or blood in urine/groin or penis or scrotum pain. You were otherwise breathing easily, pink moist lips, smiling and talking with your son, good strength/sensation, alert/oriented, walking easily, clear lungs, no abdomen tenderness or pulsatile masses, no spinal tenderness or redness but mild right lower back discomfort, no groin/scrotum/penis tenderness , no fever temp 97.7, stable heart rate 87, stable breathing rate 16, stable oxygen level 94% room air, elevated blood pressure 122/62 which we recommend repeat in 2-3 days primary care office to determine further treatment, home finger stick glucose 150, radiology ct lumbar no acute fracture, flexeril, observation done in the ED with improvement, counselled to use heating pad and thus discharged home with son. 1. Recommend tylenol as directed for mild pain. 2. Recommend flexeril as directed for breakthrough pain. Don't work/drive/drink alcohol when using. 3. Recommend follow-up primary care 2 days to review symptoms, referral to spine clinic for disc disease and degenerative findings to ensure further care. 4. If any worsening pain, fever, chills, nausea, vomiting, difficulty breathing, numbness, loss of limb function, pain with urination or any medical condition then return to the ED. Prescriptions: Cyclobenzaprine [Cyclobenzaprine HCl] 10 mg PO Q8 PRN 5 Days #15 tab PRN Reason: breakthrough pain Forms: [email or web address] (Turkmen)
--- NOTE | 2018-03-03 11:58 | CT ---
PROCEDURE: CT Lumbar Spine without contrast HISTORY: 72yoM, with lumbar pain/discomfort COMPARISON: None. TECHNIQUE: Axial computed tomography images were obtained of the lumbar spine without the use of intravenous contrast. Coronal and sagittal reformatted images were created and reviewed. Radiation dose: Total exam DLP = 1455.59 MGy-cm. This CT exam was performed using one or more of the following dose reduction techniques: Automated exposure control, adjustment of the mA and/or kV according to patient size, and/or use of iterative reconstruction technique. FINDINGS: VERTEBRAE: There is normal alignment of the lumbar vertebral bodies. There is normal lumbar lordosis. There is severe diffuse bone demineralization. There is no acute fracture, spondylolysis or spondylolisthesis. Evaluation of the spinal canal, conus medullaris and nerve roots of cauda equina is limited on noncontrast CT examination. The spinal canal is grossly patent. The paraspinous soft tissues are normal. Imaged portion of the retroperitoneum is within normal limits. DISCS/SPINAL CANAL/NEURAL FORAMINA: L1-2: Posterior disc bulge with superimposed left foraminal disc protrusion without central spinal canal stenosis. Mild bilateral facet arthropathy contribute to severe left neural foraminal narrowing. L2-3: Posterior disc bulge and mild bilateral facet arthropathy without neural foraminal narrowing or spinal canal stenosis. L3-4: Posterior disc bulge and superimposed small left foraminal disc protrusion without central spinal canal stenosis. Mild bilateral facet arthropathy contribute to mild left neural foraminal narrowing. L4-5: Diffuse posterior disc bulge without central spinal canal stenosis. Mild bilateral facet arthropathy contribute to mild neural foraminal narrowing. L5-S1: Mild posterior disc bulge without spinal canal stenosis or neural foraminal narrowing. PARASPINAL SOFT TISSUES: Unremarkable. OTHER FINDINGS: None. IMPRESSION: 1. No acute fracture, spondylolysis or spondylolisthesis. 2. Mild multilevel degenerative disc disease, worse at L3-4 with a posterior disc bulge and small left foraminal disc protrusion without central spinal canal stenosis.
[2018-03-03 12:00] VITALS: BP 127/86; O2SAT 99
[2018-03-03 12:40] VITALS: RESP 19
== END 2018-03-03 12:40 | disposition home or self-care (01) ==
LOC: ED 10:43
DX: M54.5 Low back pain (principal)

== ENCOUNTER 2018-05-03 06:00 | Day surgery (SDC) | payer MEDICARE ==
[2018-05-03] MEDS ORDERED: Phenylephrine 10 mg/ml Inj ONE (06:30)
[2018-05-03] MEDS ORDERED: Lidocaine 2% Inj (20ml) ONE (06:30)
[2018-05-03] MEDS ORDERED: Iodixanol 320 MG/ML 100 ML BOTTLE IV ONE ×2 (06:31→08:27)
[2018-05-03] MEDS ORDERED: Iohexol 350mgl/ml 50 ML ONE (06:31)
[2018-05-03] MEDS ORDERED: Nitroglycerin 50mg in D5W 0 MG/0 ML BOTTLE IV ONE (06:31)
[2018-05-03] MEDS ORDERED: Iodixanol 320 MG/ML 200 ML BOTTLE IV ONE (06:31)
[2018-05-03] MEDS ORDERED: Midazolam 2 MG/2 ML VIAL ONE ×2 (07:39→08:38)
[2018-05-03] MEDS ORDERED: Sodium Chloride 0.9% 1,000 ML IV SCH (09:00)
[2018-05-03 10:49] VITALS: O2SAT 99
[2018-05-03] MEDS: Insulin Lispro (humaLOG) LOW Coverage SC SCH ×2 (12:02→16:46)
--- NOTE | 2018-05-03 12:31 | CARD ---
APPROVED REPORT EKG Measurement Heart [id number] <Conclusion> Sinus bradycardia with 1st degree AV block with blocked premature atrial complexes Otherwise normal ECG
--- NOTE | 2018-05-03 12:35 | CARD ---
APPROVED REPORT EKG Measurement Heart [id number] <Conclusion> Sinus rhythm with 1st degree AV block with premature atrial complexes Otherwise normal ECG
[2018-05-03 13:40] VITALS: TEMP 97.3
[2018-05-03 15:33] VITALS: RESP 16
[2018-05-03 15:36] VITALS: BP 136/73; PULSE 78
--- NOTE | 2018-05-03 15:59 | CARDCATH ---
PROCEDURE DATE: 05/03/2018 PROCEDURES: 1. Selective left and right coronary angiography. 2. Left ventriculography. 3. Percutaneous coronary intervention of left circumflex artery with drug-eluting stents. 4. Right femoral arteriography. 5. Mynx deployment. HISTORY: This is a 72-year-old man with known coronary artery disease status post prior PCI of his LAD, who has had worsening exertional dyspnea. Stress test showed evidence of inferolateral ischemia and cardiac catheterization was advised. INDICATIONS: 1. Coronary artery disease. 2. Exertional dyspnea. 3. Abnormal stress test. FINDINGS: HEMODYNAMICS: The aortic pressure was 140/80 with a left ventricular pressure of 140/16. CORONARY ANATOMY: 1. The left mainstem was short and normal. 2. The left anterior descending artery had a moderate degree of ectasia in its proximal and mid segment of the vessel. The vessel was of moderate size and wrapped around the apex. In the mid portion of the vessel, between 2 ectatic segments, there was tubular 50% stenosis. The proximal LAD also had evidence of mild disease. The previously placed proximal stent had no evidence of significant re-stenosis. 3. Left circumflex artery gave rise to a moderate sized proximal obtuse marginal branch, followed by bifurcating second branch, which was of moderate size. The first obtuse marginal branch had evidence of mild diffuse disease. The proximal circumflex had mild irregularities and a 90% stenosis in its mid portion. This also did have some ectasia beyond the stenosis and there was a 70% stenosis involving the second obtuse marginal branch. The right coronary artery was large and dominant. This was also moderately ectatic. There was 50% stenosis in the early mid portion, followed by a 40% stenosis in the late mid portion. The PDA had evidence of mild diffuse disease. LEFT VENTRICULOGRAPHY: A hand injection was performed in the left ventricle in the WILLIAMSON projection. This revealed evidence of normal wall motion with an ejection fraction of 60%. There was no aortic valve gradient noted on catheter pullback. Mitral regurgitation was not assessed. CORONARY INTERVENTION: Four thousand units of intravenous heparin was administered and the ACT was 227 seconds during the procedure. Guide catheter support was difficult during the case. Initially, a 3.5 EBU guide catheter was utilized, and a [place] wire was used to cross the circumflex lesions. Initial inflations were performed in the proximal vessel with the use of 3 x 12 mm balloon. There was evidence of dissection at the site of the balloon inflation. Attempts were made to advance a 2.5 x 12 mm balloon distally; however, guide catheter support was lost. The EBU catheter was exchanged for a JR 4.5 guide, but again, this was suboptimal, and the wire was again passed and distal inflation performed with a 2.5 balloon. However, the guide catheter prolapsed and wire access was lost. Several attempts were again made to continue the procedure utilizing the same guide catheter; however, ultimately this was switched out for a left Amplatzer II guide catheter and the procedure continued. There was again difficulty maintaining wire access due to suboptimal guide catheter support, but ultimately, the 2.5 balloon was used to dilate the distal vessel. Following this, a 2.75 x 15 mm Resolute Arik drug-eluting stent was advanced into the distal vessel and inflated to 12 atmospheres. There was 0% residual stenosis noted at the site. Following this, attempts were then made to advance the 3 x 15 mm Resolute stent into the mid section of the vessel; however, this did not pass easily. The stent balloon was removed and a repeat inflation performed at the site with the use of the 3 x 12 mm balloon again. Following this, the 3 x 15 mg Resolute [place] drug-eluting stent was advanced and successfully deployed to 14 atmospheres. There was 0% residual stenosis noted at both sites. There appeared to be no evidence of stent extrusion into the ectatic segment of the vessel and DARYA grade 3 flow was present after the intervention. RIGHT FEMORAL ARTERIOGRAPHY: A right femoral arteriogram was performed revealing no evidence of significant disease. The puncture site appeared to be at the bifurcation of the profunda and SFA branches. This was then closed with deployment of a Mynx device. CONCLUSION: 1. Patent left anterior descending artery stent. 2. Moderate 3-vessel ectasia. 3. Moderate mid left anterior descending and mid right coronary artery disease. 4. Severe mid and distal left circumflex disease. 5. Successful PCI of circumflex lesions with drug-eluting stents as described above. RECOMMENDATIONS: Given the above findings, the aspirin Plavix therapy will be continued for at least 1 year. Therapy with statins will be continued. The patient does have Mobitz type 1 AV block and beta-tien therapy will be withheld. Continue risk factor control as advised. Jonh Atkinson MD cc: Rex Singletary MD
== END 2018-05-03 17:40 | disposition home or self-care (01) ==
LOC: CATH 06:00 → 2RSO 09:15 → CATH 17:40
PROVIDERS: ATTEND Internal Medicine Cardiovascular Disease
DX: I25.10 Atherosclerotic heart disease of native coronary artery without angina pectoris (principal); Z95.5 Presence of coronary angioplasty implant and graft; I10 Essential (primary) hypertension; E66.9 Obesity, unspecified; R06.09 Other forms of dyspnea; R94.39 Abnormal result of other cardiovascular function study; Z68.34 Body mass index [BMI] 34.0-34.9, adult
CPT/HCPCS: 36415; 82948; 85175; 86850; 86900; 93005; 93458; 99152; 99153; C1725 ×2; C1760; C1769 ×2; C1874 ×2; C1887 ×3; C2629; C9600; J1644 ×2; J2250; J3010; J7030; J7040; Q9966; Q9967 ×2

== ENCOUNTER 2018-10-16 09:54 | Emergency (ER) | payer MEDICARE ==
[2018-10-16 10:19] VITALS: BMI 33.4
[2018-10-16 10:28] VITALS: RESP 18; TEMP 98.2
--- NOTE | 2018-10-16 11:21 | RAD ---
Date of service: 10/16/2018 PROCEDURE: Radiographs of the Chest and Left Ribs. HISTORY: left lateral rib pain s/p bending over COMPARISON: 01/01/2018. TECHNIQUE: Frontal radiograph of the chest and multiple oblique radiographs of the left ribs were obtained. FINDINGS: LEFT RIBS: No fracture or focal lesion visualized. LUNGS: Clear. PLEURA: No pneumothorax or pleural fluid. CARDIOVASCULAR: Normal cardiac size. No pulmonary vascular congestion. No aortic atherosclerotic calcification present OTHER FINDINGS: None. IMPRESSION: Unremarkable radiographs of the chest and left ribs. No left rib fracture.
[2018-10-16 11:58] VITALS: BP 113/71; PULSE 59; O2SAT 96
--- NOTE | 2018-10-16 12:19 | ED PDOC ---
Arrival/HPI - General Chief Complaint: Rib Injury Time Seen by Provider: 10/16/18 10:00 Historian: Patient, Spouse - History of Present Illness Narrative History of Present Illness (Text): 10/16/18 12:35 72-year-old male presents today with left-sided rib pain one hour prior to arrival. Patient states he was bending over in the car to reach for something and felt a cracking sensation in the lateral aspect of the left ribs. Patient denies chest pain or shortness of breath. He denies fevers or chills. He denies abdominal pain. Patient denies dizziness or weakness. No nausea or vomiting. Patient states that he is concerned that he may have broken his ribs. Patient states he did not hit his ribs into anything he just heard the cracking sound. Pt is c/o pain to palpation over the lateral left ribs. Past Medical History - Provider Review Nursing Documentation Reviewed: Yes - Travel History Have you recently traveled outside [place] w/in the past 3 mons?: No - Infectious Disease Hx of Infectious Diseases: None - Tetanus Immunization Tetanus Immunization: Unknown - Cardiac Hx Hypertension: Yes Hx Pacemaker: No Other/Comment: stents - Pulmonary Hx Respiratory Disorders: Yes Hx Bronchitis: Yes Hx Chronic Obstructive Pulmonary Disease (COPD): Yes Hx Emphysema: Yes - Neurological Hx Paralysis: No - HEENT Hx HEENT Disorder: No - Renal Hx Renal Disorder: No - Endocrine/Metabolic Hx Endocrine Disorders: Yes Hx Diabetes Mellitus Type 2: Yes - Hematological/Oncological Hx Blood Transfusions: No Hx Blood Transfusion Reaction: No - Integumentary Other/Comment: multiple skin discolorations ble and dry skin - Musculoskeletal/Rheumatological Hx Musculoskeletal Disorders: No - Gastrointestinal Hx Gastrointestinal Disorders: No - Genitourinary/Gynecological Hx Genitourinary Disorders: No - Psychiatric Hx Emotional Abuse: No Hx Physical Abuse: No Hx Substance Use: No - Surgical History Hx Cardiac Catheterization: Yes - Anesthesia Hx Anesthesia: Yes Hx Anesthesia Reactions: No Hx Malignant Hyperthermia: No - Suicidal Assessment Feels Threatened In Home Enviroment: No Family/Social History - Physician Review Nursing Documentation Reviewed: Yes Family/Social History: Unknown Family HX Smoking Status: Former Smoker Hx Alcohol Use: Yes (1/2 glass wine a day) Frequency of alcohol use: Socially Hx Substance Use: No Hx Substance Use Treatment: No Allergies/Home Meds Allergies/Adverse Reactions: Allergies No Known Allergies Allergy (Verified 03/03/18 10:45) Home Medications: Home Meds Medication Instructions Recorded Confirmed Fluticasone/Salmeterol 250/50 1 puff PO BID PRN 11/08/15 05/03/18 [Advair Diskus 250/50] Aspirin [Ecotrin] 81 mg PO DAILY 11/17/16 05/03/18 Losartan Potassium [Cozaar] 50 mg PO DAILY 11/17/16 05/03/18 Pravastatin Sodium 40 mg PO DAILY 11/17/16 05/03/18 Empagliflozin/Metformin HCl 1 tab PO QPM 01/01/18 05/03/18 [Synjardy 12.5-1,000 mg Tablet] MetFORMIN [glucOPHAGE] 1,000 mg PO QAM 04/25/18 05/03/18 Montelukast [Singulair] 10 mg PO DAILY 04/25/18 05/03/18 Clopidogrel [Plavix] 75 mg PO DAILY 05/03/18 05/03/18 Review of Systems - Review of Systems Constitutional: absent: Fatigue, Fevers Respiratory: Other (left rib pain/ cracking sound after bending over. ). absent: SOB, Cough Cardiovascular: absent: Chest Pain, Palpitations Gastrointestinal: absent: Abdominal Pain, Constipation, Diarrhea, Nausea, Vomiting Genitourinary Male: absent: Dysuria, Frequency, Hematuria Musculoskeletal: Arthralgias (left rib pain). absent: Back Pain, Neck Pain Skin: absent: Rash, Pruritis Neurological: absent: Headache, Dizziness Psychiatric: absent: Anxiety, Depression, Suicidal Ideation Physical Exam Vital Signs Reviewed: Yes Vital Signs Temp Pulse Resp BP Pulse Ox 10/16/18 11:57 59 L 18 113/71 96 10/16/18 10:22 98.2 F 58 L 18 115/79 95 Temperature: Afebrile Blood Pressure: Normal Pulse: Regular Respiratory Rate: Normal Appearance: Positive for: Well-Appearing, Non-Toxic, Comfortable Pain Distress: None Mental Status: Positive for: Alert and Oriented X 3 - Systems Exam Head: Present: Atraumatic Mouth: Present: Moist Mucous Membranes Neck: Present: Normal Range of Motion Respiratory/Chest: Present: Clear to Auscultation, Good Air Exchange, Tender to Palpation (+ minimal ttp over left lateral lower ribs; no edema, no erythema; no ecchymosis; no step offs. ). No: Respiratory Distress, Accessory Muscle Use Cardiovascular: Present: Regular Rate and Rhythm, Normal S1, S2. No: Murmurs, Tachycardic Abdomen: No: Tenderness, Distention, Peritoneal Signs, Rebound, Guarding Upper Extremity: Present: Normal ROM Lower Extremity: Present: Normal ROM Neurological: Present: GCS=15, Speech Normal Skin: Present: Warm, Dry, Normal Color. No: Rashes Psychiatric: Present: Alert, Oriented x 3 Medical Decision Making ED Course and Treatment: 10/16/18 12:48 72yr old male with left sided rib pain concerned for rib fracture after hearing cracking sound to ribs after bending over. pt is refusing any medications for pain; states he just wants to know if his ribs are broken. left ribs/cxr; FINDINGS: LEFT RIBS: No fracture or focal lesion visualized. LUNGS: Clear. PLEURA: No pneumothorax or pleural fluid. CARDIOVASCULAR: Normal cardiac size. No pulmonary vascular congestion. No aortic atherosclerotic calcification present OTHER FINDINGS: None. IMPRESSION: Unremarkable radiographs of the chest and left ribs. No left rib fracture. advised patient of xray results. advised tylenol or motrin for pain. advised f/u with PMD tomorrow. advised immediate return if any concerning symptoms develop. Patient verbalizes understanding of discharge instructions and need for immediate followup. all aspects of this case were discussed with dr. foster. impression; rib pain/rib injury tylenol every 4 hours as needed for pain follow up with the primary care physician tomorrow return immediately if symptoms worsen,persist or if new symptoms develop. - RAD Interpretation Radiology Orders: 10/16/18 10:38 RIBS LEFT & PA CHEST [RAD] Stat Disposition/Present on Arrival - Present on Arrival Any Indicators Present on Arrival: No History of DVT/PE: No History of Uncontrolled Diabetes: No Urinary Catheter: No History of Decub. Ulcer: No History Surgical Site Infection Following: None - Disposition Have Diagnosis and Disposition been Completed?: Yes Diagnosis: Rib injury Disposition: HOME/ ROUTINE Disposition Time: 11:50 Patient Plan: Discharge Patient Problems: Current Active Problems Problem Status Onset Rib injury Acute Condition: GOOD Additional Instructions: tylenol every 4 hours as needed for pain follow up with the primary care physician tomorrow return immediately if symptoms worsen,persist or if new symptoms develop. Referrals: Rex Singletary MD [Family Provider] - Follow up with primary Forms: [employer] (Danish)
== END 2018-10-16 12:36 | disposition home or self-care (01) ==
LOC: ED 09:54
DX: S29.9XXA Unspecified injury of thorax, initial encounter (principal); X50.1XXA Overexertion from prolonged static or awkward postures, initial encounter; E11.9 Type 2 diabetes mellitus without complications; I10 Essential (primary) hypertension; J44.9 Chronic obstructive pulmonary disease, unspecified; Z87.891 Personal history of nicotine dependence